=== PATIENT | male | born 1960 | race Caucasian/White ===

== ENCOUNTER 2019-08-09 23:37 | Emergency (ER) | payer MEDICARE, MEDICAID ==
[~2019-08-09] VITALS: Ht 188 cm; Wt 114.4 kg
--- NOTE | 2019-08-10 01:36 | NUR ---
WENT TO CANDY SEPARATOR ENROBING CAROLE DALAL REFUSED CANDY SEPARATOR ENROBING.
[2019-08-10] MEDS ORDERED: LIDOcaine 1% W/epiNEPHrine 1:100,000 20ml vial IJ ONE (01:40)
[2019-08-10] MEDS ORDERED: LIDOcaine 1.5% w/epinephrine 1:200,000 5ml ampul IJ ONE (01:40)
[2019-08-10] MEDS ORDERED: DOCU100C41 PO (02:14)
[2019-08-10] MEDS ORDERED: HYDR25SU48 RC (02:14)
[2019-08-10 02:17] VITALS: BP 137/78
== END 2019-08-10 02:22 | disposition home or self-care (01) ==
LOC: ER 23:38
DX: K64.5 Perianal venous thrombosis (principal); Z88.5 Allergy status to narcotic agent; Z79.899 Other long term (current) drug therapy
CPT/HCPCS: 96374; 99283; 99284

== ENCOUNTER 2022-10-01 11:46 | Emergency (ER) | payer MEDICARE, MEDICAID ==
[~2022-10-01] VITALS: Ht 190.5 cm; Wt 275.0 kg
[~2022-10-01 11:46] MED LIST: DOCU100C41 PO
[2022-10-01 12:05] VITALS: BP 170/104
[2022-10-01] MEDS ORDERED: HYDR-3972 PO (13:35)
[2022-10-01] MEDS ORDERED: MORP30TA PO (13:35)
== END 2022-10-01 13:46 | disposition home or self-care (01) ==
LOC: ER 11:47
DX: F11.93 Opioid use, unspecified with withdrawal (principal); G89.29 Other chronic pain; M54.9 Dorsalgia, unspecified; Z88.5 Allergy status to narcotic agent; Z79.899 Other long term (current) drug therapy
CPT/HCPCS: 93005; 99283

== ENCOUNTER 2023-10-07 13:05 | Emergency (ER) | payer MEDICARE, MEDICAID ==
[~2023-10-07] VITALS: Ht 190.5 cm; Wt 122.7 kg
[2023-10-07 13:13] VITALS: BP 194/109; PULSE 106; RESP 18; TEMP 98; O2SAT 97
[2023-10-07] MEDS ORDERED: HYDROcodone/acetaminophen 10/325mg tab PO ONE (13:40)
[2023-10-07] MEDS ORDERED: morphine IR (immed. release) 30mg tablet PO ONE (13:40)
== END 2023-10-07 14:00 | disposition home or self-care (01) ==
LOC: ER 13:07
DX: G89.29 Other chronic pain (principal); M54.59 Other low back pain; F17.200 Nicotine dependence, unspecified, uncomplicated; Z88.5 Allergy status to narcotic agent; Z79.899 Other long term (current) drug therapy
CPT/HCPCS: 99281

== ENCOUNTER 2023-10-07 18:37 | Emergency (ER) | payer MEDICARE, MEDICAID ==
[~2023-10-07] VITALS: Ht 190.5 cm; Wt 123.8 kg
[2023-10-07] MEDS ORDERED: morphine IR (immed. release) 30mg tablet PO ONE (18:50)
[2023-10-07] MEDS ORDERED: HYDROcodone/acetaminophen 10/325mg tab PO ONE (18:50)
[2023-10-07 19:29] VITALS: BP 165/97; PULSE 95; RESP 18; TEMP 98.8; O2SAT 98
== END 2023-10-07 19:31 | disposition home or self-care (01) ==
LOC: ER 18:38
DX: F11.10 Opioid abuse, uncomplicated (principal); Z76.0 Encounter for issue of repeat prescription
CPT/HCPCS: 99283